=== PATIENT | female | born 1955 | race African-American/Black ===

== ENCOUNTER → 2024-06-23 | Day surgery (SDC) | payer MEDICARE, MEDICAID ==
[~2024-06-23] VITALS: Ht 172.7 cm; Wt 83.9 kg
[~2024-06-23] MED LIST: ATOR40TA70 PO; BALANCED SALT IRRIG SOLN 15ML ONE; BALANCED SALT IRRIG SOLN COMB1 500ML OP NR; CYCLOPENTOLATE HCL 1% OPHTH DROPS 2ML LEFTEYE NR; HYALURONATE SODIUM 10MG/ML 0.55ML SYRINGE IO ONE; LACTATED RINGERS 1,000 ML IV SCH; LISI20TA31 PO; PHENYLEPHRINE HCL 10% OPHTH DROPS 5ML LEFTEYE NR; TROPICAMIDE 1% OPHTH DROPS 15ML LEFTEYE NR
[2024-06-23] MEDS: SODIUM CHLORIDE 0.9% 1,000 ML IV SCH (08:29)
== END | disposition home or self-care (01) ==
LOC: OR 07:39
PROVIDERS: ATTEND Ophthalmology
DX: H25.89 Other age-related cataract (principal); I10 Essential (primary) hypertension; E78.5 Hyperlipidemia, unspecified; Z79.899 Other long term (current) drug therapy; Z98.890 Other specified postprocedural states
CPT/HCPCS: 66984; 82962; J3490 ×2; V2632